=== PATIENT | female | born 1955 | race Caucasian/White ===

== ENCOUNTER → 2017-01-27 | Outpatient (CLI) | payer OTHER ==
[~2017-01-27] MED LIST: ADVAIR 250/501 DISK IH; CALCARB 600 W-1 EACH PO; CLEOCIN300 MG PO; COMBIVENT RESPIM4 GM IH; EPIPEN ADU0.3 MG/0.3 IM; FEMARA2.5 MG PO; LEVAQUIN500 MG PO; LOMOTIL TABLET1 EACH PO; NEURONTIN300 MG PO; NORVASC5 MG PO; OXAYDO5 MG PO; OXYCONTIN20 MG PO; PEPCID40 MG PO; PERCOCET 10/1 TABLET PO; PERCOCET 5/31 TABLET PO; PREDNISONE20 MG PO; PROMETHAZINE HC25 M1 PO; XANAX0.5 MG PO; ZYRTEC10 M3 PO
== END | disposition home or self-care (01) ==
LOC: EKG 13:00
DX: I07.1 Rheumatic tricuspid insufficiency (principal); I06.0 Rheumatic aortic stenosis; I05.1 Rheumatic mitral insufficiency; I27.2 Other secondary pulmonary hypertension; R94.31 Abnormal electrocardiogram [ECG] [EKG]; C77.3 Secondary and unspecified malignant neoplasm of axilla and upper limb lymph nodes; C78.2 Secondary malignant neoplasm of pleura; Z92.21 Personal history of antineoplastic chemotherapy
CPT/HCPCS: 93306

== ENCOUNTER → 2017-05-03 | Outpatient (CLI) | payer OTHER | END | disposition home or self-care (01) | LOC: EKG 12:42 | DX: I05.1 Rheumatic mitral insufficiency (principal); I07.1 Rheumatic tricuspid insufficiency; I27.20 Pulmonary hypertension, unspecified; I06.0 Rheumatic aortic stenosis; C77.3 Secondary and unspecified malignant neoplasm of axilla and upper limb lymph nodes; C78.2 Secondary malignant neoplasm of pleura; Z79.899 Other long term (current) drug therapy | CPT/HCPCS: 93306 ==

== ENCOUNTER 2017-11-28 14:26 | Inpatient (IN) | payer BC ==
[~2017-11-28] VITALS: Ht 160 cm; Wt 102.0 kg
[~2017-11-28 14:26] MED LIST changes: +NORVASC10 MG PO; -NORVASC5 MG PO; +OXYCODONE HCL15 MG PO; -OXYCONTIN20 MG PO
[2017-11-28 15:33] LABS: BASOPHIL (%) 0.4 % (0-1); EOSINOPHIL COUNT 0.1 K/uL (0-0.3); HEMATOCRIT 29.1 % (36.0-46.0); HEMOGLOBIN 9.3 G/DL (11.9-15.5); IMMATURE GRANULOCYTE (%) 0.4 % (0.0-0.7); LYMPHOCYTE (%) 28.1 % (15-42); LYMPHOCYTE COUNT 1.4 K/uL (1.0-2.8); MCH 27.2 PG (29.0-34.0); MCV 85.1 FL (83-99); MONOCYTE (%) 13.6 % (3-12); MONOCYTE COUNT 0.7 K/uL (0-0.8); NEUTROPHIL (%) 56.5 % (45-76); NEUTROPHIL COUNT 2.9 K/uL (1.8-6.4); PLATELET COUNT 216 K/uL (156-360); RBC DIS.WIDTH-CV 14.6 % (11.8-14.6); RBC DIS.WIDTH-SD 45.2 % (39-53); RED BLOOD COUNT 3.42 M/uL (3.80-5.20); WHITE BLOOD COUNT 5.1 K/uL (4.1-10.2)
[2017-11-28 15:44] LABS: ALBUMIN 3.3 g/dL (3.2-4.8); CHLORIDE 109 mEq/L (99-109); SODIUM 142 mEq/L (136-147)
[2017-11-28 15:46] LABS: GLUCOSE 137 mg/dL (70-99)
[2017-11-28 15:48] LABS: TOTAL BILIRUBIN 0.5 mg/dL (0.0-1.0)
[2017-11-28 15:50] LABS: ALKALINE PHOSPHATASE 81 IU/L (3-129)
[2017-11-28 15:51] LABS: AST (GOT) 32 IU/L (2-34); CREATININE 0.8 mg/dL (0.6-1.3); GFR ESTIMATE (CALCULATED) > 59 mL/min/; UREA NITROGEN (BUN) 16 mg/dL (9-23)
[2017-11-28 15:53] LABS: ALT (GPT) 31 IU/L (3-49)
[2017-11-28 16:23] LABS: TROP-I INTERPRETATION NEGATIVE; TROPONIN-I 0.02 ng/mL (0.0-0.30)
[2017-11-28 18:44] LABS: INTER. NORMALIZED RATIO 1.1
[2017-11-28 18:46] LABS: PTT 29.9 SEC (25-37)
[2017-11-28 21:42] LABS: IRON 10 MCG/DL (35-150); TRANSFERRIN (TIBC) 319.3 mg/dL (215-380); TRANSFERRIN SATUR. 3 % (20-55)
[2017-11-28 22:00] VITALS: BP 133/67
[2017-11-28 22:20] LABS: THYROTROPIN (TSH) 1.1 MIU/L (0.4-5.5)
[2017-11-28 22:26] LABS: FERRITIN 9 NG/ML (10-291)
[2017-11-29] VITALS (12 sets, daily range): BP systolic 106–134; BP diastolic 61–86
[2017-11-29 01:10] LABS: HEMOGLOBIN 8.6 G/DL (11.9-15.5)
[2017-11-29 01:11] LABS: HEMATOCRIT 26.7 % (36.0-46.0)
[2017-11-29 06:16] LABS: STOOL OCCULT BLD 1ST SPECIMEN NEGATIVE
[2017-11-29 08:16] LABS: HEMATOCRIT 28.6 % (36.0-46.0); MCH 26.9 PG (29.0-34.0); MCHC 31.5 G/DL (30.0-36.0); MCV 85.4 FL (83-99); PLATELET COUNT 210 K/uL (156-360); RBC DIS.WIDTH-CV 14.6 % (11.8-14.6); RBC DIS.WIDTH-SD 45.1 % (39-53); RED BLOOD COUNT 3.35 M/uL (3.80-5.20); WHITE BLOOD COUNT 5.4 K/uL (4.1-10.2)
[2017-11-29 08:43] LABS: CHLORIDE 109 MEQ/L (99-109); CREATININE 0.8 MG/DL (0.6-1.3); GFR ESTIMATE (CALCULATED) > 59 mL/min/; GLUCOSE 114 mg/dL (70-99); SODIUM 140 MEQ/L (136-147); UREA NITROGEN (BUN) 14 mg/dL (9-23)
[2017-11-30 02:11] LABS: BASOPHIL (%) 0.5 % (0-1); EOSINOPHIL (%) 3.3 % (0-5); EOSINOPHIL COUNT 0.2 K/uL (0-0.3); HEMATOCRIT 29.6 % (36.0-46.0); HEMOGLOBIN 9.3 G/DL (11.9-15.5); IMMATURE GRANULOCYTE (%) 0.3 % (0.0-0.7); LYMPHOCYTE (%) 36.9 % (15-42); LYMPHOCYTE COUNT 2.3 K/uL (1.0-2.8); MCHC 31.4 G/DL (30.0-36.0); MONOCYTE (%) 13.5 % (3-12); MONOCYTE COUNT 0.8 K/uL (0-0.8); NEUTROPHIL (%) 45.5 % (45-76); NEUTROPHIL COUNT 2.8 K/uL (1.8-6.4); PLATELET COUNT 213 K/uL (156-360); RBC DIS.WIDTH-CV 15.2 % (11.8-14.6); RBC DIS.WIDTH-SD 47.6 % (39-53); RED BLOOD COUNT 3.44 M/uL (3.80-5.20); WHITE BLOOD COUNT 6.1 K/uL (4.1-10.2)
[2017-11-30 02:21] LABS: CHLORIDE 110 mEq/L (99-109); POTASSIUM 4.4 mEq/L (3.7-5.4); SODIUM 140 mEq/L (136-147)
[2017-11-30 02:23] LABS: GLUCOSE 101 mg/dL (70-99)
[2017-11-30 02:26] LABS: CREATININE 0.8 mg/dL (0.6-1.3); GFR ESTIMATE (CALCULATED) > 59 mL/min/
[2017-11-30 02:27] LABS: UREA NITROGEN (BUN) 13 mg/dL (9-23)
[2017-11-30 04:14] VITALS: BP 105/59
[2017-11-30 07:26] VITALS: BP 111/63
[2017-11-30 11:38] VITALS: BP 105/65
[2017-11-30 14:32] LABS: BASE EXCESS -4.9 mEq/L (-3 to +3); BICARBONATE 19.5 mEq/L (22-26); CARBOXY HGB 1.6 % (0-5); METHEMOGLOBIN 1.4 % (0-1.5); PCO2 33 mm Hg (35-45); PO2 71 mm Hg (80-100); pH 7.38 (7.35-7.45)
[2017-11-30 14:35] LABS: COMMENTS - BLOOD GASES A+C+; DEVICE NCH; O2 FLOW 8 L/MIN; SITE LR; TOTAL RESP RATE 18 resp/min
[2017-11-30 16:02] VITALS: BP 120/75
[2017-11-30 19:29] VITALS: BP 136/75
[2017-11-30 23:09] VITALS: BP 146/74
[2017-12-01 04:17] VITALS: BP 140/72
[2017-12-01 06:46] LABS: BASOPHIL (%) 0.3 % (0-1); EOSINOPHIL (%) 3.3 % (0-5); EOSINOPHIL COUNT 0.2 K/uL (0-0.3); HEMATOCRIT 30.9 % (36.0-46.0); HEMOGLOBIN 9.4 G/DL (11.9-15.5); IMMATURE GRANULOCYTE (%) 0.3 % (0.0-0.7); LYMPHOCYTE (%) 34.8 % (15-42); LYMPHOCYTE COUNT 2.1 K/uL (1.0-2.8); MCH 26.4 PG (29.0-34.0); MCHC 30.4 G/DL (30.0-36.0); MCV 86.8 FL (83-99); MONOCYTE COUNT 0.7 K/uL (0-0.8); NEUTROPHIL (%) 49.3 % (45-76); NEUTROPHIL COUNT 2.9 K/uL (1.8-6.4); PLATELET COUNT 217 K/uL (156-360); RBC DIS.WIDTH-CV 14.9 % (11.8-14.6); RBC DIS.WIDTH-SD 47.8 % (39-53); RED BLOOD COUNT 3.56 M/uL (3.80-5.20)
[2017-12-01 07:09] LABS: CHLORIDE 111 MEQ/L (99-109); CREATININE 0.8 MG/DL (0.6-1.3); GFR ESTIMATE (CALCULATED) > 59 mL/min/; GLUCOSE 114 mg/dL (70-99); POTASSIUM 3.6 MEQ/L (3.7-5.4); SODIUM 138 MEQ/L (136-147); UREA NITROGEN (BUN) 12 mg/dL (9-23)
[2017-12-01 07:20] VITALS: BP 95/64
[2017-12-01 11:31] VITALS: BP 125/75
[2017-12-01 16:32] VITALS: BP 130/79
[2017-12-01 18:08] LABS: HEMOGLOBIN 9.9 G/DL (11.9-15.5)
[2017-12-01 19:00] VITALS: BP 124/73
[2017-12-01 22:30] VITALS: BP 139/81
[2017-12-02 04:30] VITALS: BP 128/72
[2017-12-02 05:44] LABS: BASOPHIL (%) 0.5 % (0-1); EOSINOPHIL (%) 2.3 % (0-5); EOSINOPHIL COUNT 0.1 K/uL (0-0.3); HEMATOCRIT 29.2 % (36.0-46.0); HEMOGLOBIN 8.9 G/DL (11.9-15.5); IMMATURE GRANULOCYTE (%) 0.3 % (0.0-0.7); LYMPHOCYTE (%) 34.6 % (15-42); LYMPHOCYTE COUNT 2.1 K/uL (1.0-2.8); MCH 26.4 PG (29.0-34.0); MCHC 30.5 G/DL (30.0-36.0); MCV 86.6 FL (83-99); MONOCYTE (%) 12.6 % (3-12); MONOCYTE COUNT 0.8 K/uL (0-0.8); NEUTROPHIL (%) 49.7 % (45-76); PLATELET COUNT 214 K/uL (156-360); RBC DIS.WIDTH-CV 14.9 % (11.8-14.6); RED BLOOD COUNT 3.37 M/uL (3.80-5.20); WHITE BLOOD COUNT 6.1 K/uL (4.1-10.2)
[2017-12-02 06:13] LABS: CHLORIDE 113 MEQ/L (99-109); CREATININE 0.7 MG/DL (0.6-1.3); GFR ESTIMATE (CALCULATED) > 59 mL/min/; GLUCOSE 94 mg/dL (70-99); SODIUM 141 MEQ/L (136-147); UREA NITROGEN (BUN) 9 mg/dL (9-23)
[2017-12-02 07:52] VITALS: BP 132/78
[2017-12-02 12:13] VITALS: BP 142/80
[2017-12-02 15:56] VITALS: BP 133/86
[2017-12-02 20:45] VITALS: BP 121/87
[2017-12-03] VITALS (7 sets, daily range): BP systolic 113–140; BP diastolic 62–89
[2017-12-03 06:14] LABS: BASOPHIL (%) 0.2 % (0-1); EOSINOPHIL (%) 0 % (0-5); HEMATOCRIT 29.3 % (36.0-46.0); HEMOGLOBIN 9.2 G/DL (11.9-15.5); IMMATURE GRANULOCYTE (%) 0.5 % (0.0-0.7); LYMPHOCYTE (%) 23.4 % (15-42); LYMPHOCYTE COUNT 1.4 K/uL (1.0-2.8); MCH 26.5 PG (29.0-34.0); MCHC 31.4 G/DL (30.0-36.0); MCV 84.4 FL (83-99); MONOCYTE (%) 11.6 % (3-12); MONOCYTE COUNT 0.7 K/uL (0-0.8); NEUTROPHIL (%) 64.3 % (45-76); NEUTROPHIL COUNT 3.9 K/uL (1.8-6.4); PLATELET COUNT 217 K/uL (156-360); RBC DIS.WIDTH-CV 14.8 % (11.8-14.6); RBC DIS.WIDTH-SD 45.1 % (39-53); RED BLOOD COUNT 3.47 M/uL (3.80-5.20)
[2017-12-03 06:38] LABS: CHLORIDE 111 MEQ/L (99-109); CREATININE 0.6 MG/DL (0.6-1.3); GFR ESTIMATE (CALCULATED) > 59 mL/min/; GLUCOSE 131 mg/dL (70-99); SODIUM 140 MEQ/L (136-147); UREA NITROGEN (BUN) 8 mg/dL (9-23)
[2017-12-04 04:15] VITALS: BP 117/82
[2017-12-04 06:10] LABS: BASOPHIL (%) 0.2 % (0-1); EOSINOPHIL (%) 0.3 % (0-5); HEMATOCRIT 28.3 % (36.0-46.0); IMMATURE GRANULOCYTE (%) 0.5 % (0.0-0.7); LYMPHOCYTE (%) 28.1 % (15-42); LYMPHOCYTE COUNT 2.5 K/uL (1.0-2.8); MCH 26.9 PG (29.0-34.0); MCHC 31.8 G/DL (30.0-36.0); MCV 84.7 FL (83-99); MONOCYTE (%) 12.9 % (3-12); MONOCYTE COUNT 1.1 K/uL (0-0.8); NEUTROPHIL COUNT 5.1 K/uL (1.8-6.4); PLATELET COUNT 210 K/uL (156-360); RBC DIS.WIDTH-CV 15.3 % (11.8-14.6); RBC DIS.WIDTH-SD 45.8 % (39-53); RED BLOOD COUNT 3.34 M/uL (3.80-5.20); WHITE BLOOD COUNT 8.8 K/uL (4.1-10.2)
[2017-12-04 06:34] LABS: CHLORIDE 107 MEQ/L (99-109); CREATININE 0.8 MG/DL (0.6-1.3); GFR ESTIMATE (CALCULATED) > 59 mL/min/; GLUCOSE 109 mg/dL (70-99); POTASSIUM 3.8 MEQ/L (3.7-5.4); SODIUM 139 MEQ/L (136-147); UREA NITROGEN (BUN) 17 mg/dL (9-23)
[2017-12-04 08:19] VITALS: BP 143/78
[2017-12-04 11:22] VITALS: BP 126/74
[2017-12-04 16:09] VITALS: BP 132/73
[2017-12-04 19:50] VITALS: BP 149/70
[2017-12-05 00:24] VITALS: BP 134/77
[2017-12-05 04:20] VITALS: BP 161/82
[2017-12-05 06:36] LABS: BASOPHIL (%) 0.2 % (0-1); EOSINOPHIL (%) 0.5 % (0-5); HEMATOCRIT 28.8 % (36.0-46.0); IMMATURE GRANULOCYTE (%) 0.4 % (0.0-0.7); LYMPHOCYTE (%) 33.1 % (15-42); LYMPHOCYTE COUNT 2.8 K/uL (1.0-2.8); MCH 26.4 PG (29.0-34.0); MCHC 31.3 G/DL (30.0-36.0); MCV 84.5 FL (83-99); MONOCYTE (%) 12.4 % (3-12); MONOCYTE COUNT 1.1 K/uL (0-0.8); NEUTROPHIL (%) 53.4 % (45-76); NEUTROPHIL COUNT 4.5 K/uL (1.8-6.4); PLATELET COUNT 222 K/uL (156-360); RBC DIS.WIDTH-CV 14.9 % (11.8-14.6); RBC DIS.WIDTH-SD 45.7 % (39-53); RED BLOOD COUNT 3.41 M/uL (3.80-5.20); WHITE BLOOD COUNT 8.4 K/uL (4.1-10.2)
[2017-12-05 07:15] VITALS: BP 142/79
[2017-12-05 11:29] VITALS: BP 123/68
[2017-12-05] MEDS ORDERED: FERROUS SULFAT325 MG PO (13:35)
[2017-12-05] MEDS ORDERED: FAMOTIDINE20 MG PO (13:36)
[2017-12-05] MEDS ORDERED: ELIQUIS5 MG PO ×2 (13:36→13:59)
[2017-12-05] MEDS ORDERED: PREDNISONE10 MG PO (13:37)
== END 2017-12-05 16:30 | disposition home health service (06) | DRG 175 ==
LOC: EME 14:26 → 4EAST 19:35 → EDOF 19:35 → ENRESERV 19:36 → 4EAST 21:55 → ENPENDDIS 12-05 → 4EAST 12-05 11:19
PROVIDERS: Emergency Medicine; Hospitalist; Internal Medicine
PROC: 30233N1 Transfusion of Nonautologous Red Blood Cells into Peripheral Vein, Percutaneous Approach (ICD-10-PCS; principal; 2017-11-29)
DX: I26.99 Other pulmonary embolism without acute cor pulmonale (principal); J96.01 Acute respiratory failure with hypoxia; I82.441 Acute embolism and thrombosis of right tibial vein; J45.901 Unspecified asthma with (acute) exacerbation; E87.3 Alkalosis; E86.0 Dehydration; I95.9 Hypotension, unspecified; C79.9 Secondary malignant neoplasm of unspecified site; J91.0 Malignant pleural effusion; J98.11 Atelectasis; C50.911 Malignant neoplasm of unspecified site of right female breast; I10 Essential (primary) hypertension; K21.9 Gastro-esophageal reflux disease without esophagitis; F41.9 Anxiety disorder, unspecified; D50.9 Iron deficiency anemia, unspecified; D64.81 Anemia due to antineoplastic chemotherapy; T45.1X5A Adverse effect of antineoplastic and immunosuppressive drugs, initial encounter; Z79.891 Long term (current) use of opiate analgesic; Z88.0 Allergy status to penicillin; Z80.3 Family history of malignant neoplasm of breast; Z17.0 Estrogen receptor positive status [ER+]
CPT/HCPCS: 36600; 71045; 71046; 71275; 80048; 80053; 82272; 82607; 82728; 82803; 83540; 83605; 84443; 84466; 84484; 85014; 85018; 85025; 85027; 85049; 85610; 85730; 86850; 86900; 86901; 86920; 87040; 93005; 93970; 94640; 94799; 97530 GP; 99202; 99281; 99285; C9113; J1940; J7030; J7512; P9016